=== PATIENT | female | born 1960 | race Caucasian/White ===

== ENCOUNTER → 2020-06-25 | Day surgery (SDC) | payer OTHER ==
[~2020-06-25] MED LIST: PERCOCET 5-3251 EACH PO
[2020-06-25 12:26] LABS: HCT 42.7 % (37.0-47.0); HGB 14.7 g/dl (12.5-16.0); MCH 31.3 pg (25.0-31.0); MCHC 34.4 g/dL (32.0-36.0); MCV 90.9 fL (78.0-100.0); MPV 9.5 fL (6.0-9.5); RBC 4.7 M/uL (4.20-5.40); RDW 11.9 % (11.5-14.0); WBC 7.1 K/uL (4.0-10.5)
== END | disposition home or self-care (01) ==
LOC: FAS 09:55
PROVIDERS: Legal Medicine
DX: S52.572A Other intraarticular fracture of lower end of left radius, initial encounter for closed fracture (principal); W19.XXXA Unspecified fall, initial encounter; Y93.9 Activity, unspecified; Y92.009 Unspecified place in unspecified non-institutional (private) residence as the place of occurrence of the external cause; K57.92 Diverticulitis of intestine, part unspecified, without perforation or abscess without bleeding; Z86.018 Personal history of other benign neoplasm; Z20.822 Contact with and (suspected) exposure to COVID-19
CPT/HCPCS: 36415; 73100; 76000; 93005; C1713; J0690; J1100; J2250; J2795; J3010; J7120